=== PATIENT | male | born 1995 | race Caucasian/White ===

== ENCOUNTER 2017-08-18 18:39 | Emergency (ER) | payer OTHER ==
[~2017-08-18] VITALS: Ht 180.3 cm; Wt 95.3 kg
[2017-08-18 18:43] VITALS: BP 152/99
--- NOTE | 2017-08-18 19:48 | ED THROAT/DENTAL COMPLAINT ---
History of Present Illness General Chief Complaint: Sore Throat, Dental Pain Stated Complaint: DENTAL ABCESS Source: patient Exam Limitations: no limitations Vital Signs & Intake/Output Vital Signs & Intake/Output Vital Signs Date Time Temp Pulse Resp B/P B/P Pulse O2 O2 Flow FiO2 Mean Ox Delivery Rate 08/18 1843 98.4 106 18 152/99 97 Room Air Room Air ED Intake and Output 08/19 0000 08/18 1200 Intake Total 250 Output Total Balance 250 Intake, IV 250 Patient 95.254 kg Weight Weight Reported by Patient Measurement Method Allergies Coded Allergies: No Known Allergies (08/18/17) Triage Note: TRIAGE: 22 Y/O MALE PRESENTS C/O 9/10 DENTAL PAIN. REPORTS WENT TO [facility] THIS MORNING - TAKING AUGMENTIN 875MG - TOOK 1 DOSE ALREADY TODAY AND TOOK (2) VICODIN SINCE 2:30PM. FACIAL SWELLING AND REDNESS TO LEFT CHEEK NOTED. Triage Nurses Notes Reviewed? yes HPI: 22M no PMH with frontal dental abscess. Chipped tooth months ago, had it repaired, had trauma to it 5 days ago, saw his dentist, placed on Augmentin, pain has worsened with left maxillary swelling and tenderness, took Percocet with no relief. No drainage, difficulty eating due to pain, no neck stiffness, fever, chills, confusion, chest pain, SOB. Past History Travel History Traveled to [place] past 21 day No Medical History Any Pertinent Medical History? 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 No Review of Systems Review of Systems Constitutional: Reports: no symptoms. EENTM: Reports: no symptoms. Respiratory: Reports: no symptoms. Cardiovascular: Reports: no symptoms. GI: Reports: no symptoms. Genitourinary: Reports: no symptoms. Musculoskeletal: Reports: no symptoms. Skin: Reports: no symptoms. Neurological/Psychological: Reports: no symptoms. Hematologic/Endocrine: Reports: no symptoms. Immunologic/Allergic: Reports: no symptoms. All Other Systems: Reviewed and Negative Physical Exam Physical Exam General Appearance: well developed/nourished, no apparent distress Head: atraumatic, left maxillary erythema, swelling, tenderness Eyes: Bilateral: normal appearance. Nose: normal inspection Mouth/Throat: left incisor erythema swelling at gingiva, no drainage Neck: lymphadenopathy (L) Cardiovascular/Respiratory: normal breath sounds Back: normal inspection, normal range of motion Neurologic/Psych: awake, alert, oriented x 3, normal mood/affect Skin: intact, normal color, warm/dry Core Measures ACS in differential dx? No Sepsis Present: No Sepsis Focused Exam Completed? No Progress Differential Diagnosis: aspirated tooth, carious tooth, epiglottitis, Ludwigs angina, meningitis, odontogenic abscess, eliseo-tonsillar abscess, pharyngeal for. body, stomatitis/gingivitis, strep pharyngitis, tooth fracture Plan of Care: Current Medications Sig/Edd Start time Last Medication Dose Stop Time Status Admin Ampicillin Sodium/ 3,000 MG ONCE ONE 08/18 2014 UNVr Sulbactam Sodium 08/18 2043 (Unasyn) Sodium Chloride 100 ML (Normal Saline 0.9%) Ketorolac 30 MG ONCE ONE 08/18 2014 [facility] Tromethamine 08/18 2015 (Toradol) Departure Departure Disposition: HOME OR SELF CARE Condition: Stable Clinical Impression Primary Impression: Dental abscess Referrals: Katya TORRES,Eddie Pinedo MD,Sp Smith (PCP/Family) Eddie Roegrs DDS Additional Instructions: Follow up with oral surgery first thing in the morning. Continue taking Augmentin as prescribed. If you note fever, chills, neck stiffness, sensitivity to light, confusion, or any other new or worsening symptoms, return to emergency room. Departure Forms: Customer Survey General Discharge Information
== END 2017-08-18 21:04 ==
LOC: ERH 18:39
DX: K04.7 Periapical abscess without sinus (principal)
CPT/HCPCS: 96372; 96374; J1885